=== PATIENT | male | born 1980 | race Caucasian/White ===

== ENCOUNTER 2019-10-26 17:22 | Emergency (ER) | payer OTHER, MEDICAID, SELFPAY ==
[2019-10-26 17:32] VITALS: BP 140/73; PULSE 89; RESP 16; TEMP 37; O2SAT 99; BMI 26.4
--- NOTE | 2019-10-26 18:18 | DI.CT.S_ITS ---
PROCEDURE: CT SOFT TISSUE NECK W CON INDICATIONS: abscess right neck, difficulty swallowing TECHNIQUE: After the administration of intravenous contrast, 3.0 mm axial sections acquired from the sella to the aortic arch. Additional oblique axial 3.0 mm sections acquired through the pharynx. 3 mm thick coronal and sagittal reformats were generated. For radiation dose reduction, the following was used: automated exposure control. COMPARISON: None. FINDINGS: Image quality: Excellent. Lymph nodes: No enlarged lymph nodes seen throughout the neck. Vessels: Visualized vasculature appears patent. Neck spaces: The oropharynx, nasopharynx, and pharynx demonstrate no mucosal lesions. The vocal cords, false vocal cords, pyriform sinuses, epiglottis, vallecula, and tongue base all appear normal. There is thickening of the right platysma. There is severe facet and within the right neck subcutaneous fat. No focal fluid collection to indicate abscess. Glands: The parotid and submandibular glands appear normal. Thyroid gland demonstrates bilateral nodular densities, largest of which is in the left lobe anteriorly measuring roughly 10 mm.. Miscellaneous: Visualized brain and orbits appear normal. Lung apices appear clear. Superficial soft tissues appear normal. Bones: No suspicious bony lesions. Visualized sinuses and mastoids appear unremarkable. IMPRESSION: 1. Right neck cellulitis without abscess. Dictated by: Charo Nunn M.D. on 10/26/2019 at 19:05 Approved by: Charo Nunn M.D. on 10/26/2019 at 19:07
[2019-10-26 18:24] LABS: Add Manual Diff / Slide Review NO; Basophils Absolute Auto 0 /uL (0-100); Basophils Percent Auto 0.4 % (0-2); Eosinophils Absolute Auto 100 /uL (0-450); Eosinophils Percent Auto 0.6 % (2-4); Hematocrit 34.7 % (41-53); Hemoglobin 12.4 g/dL (13.5-17.5); Lymphocytes Absolute Auto 900 /uL (1100-4500); Lymphocytes Percent Auto 10.9 % (25-40); Mean Corpuscular HGB Conc 35.7 % (30-36); Mean Corpuscular Hemoglobin 28.7 PG (26-34); Mean Corpuscular Volume 80.4 fL (80-100); Monocytes Absolute Auto 1000 /uL (0-900); Monocytes Percent Auto 11.2 % (3-14); Neutrophils Absolute Auto 6700 /uL (1500-7000); Neutrophils Percent Auto 76.9 % (50-75); Platelet Count 246 X10^3/uL (150-400); Red Blood Cell Count 4.32 X10^6/uL (4.5-5.9); Red Cell Distribution Width 19.2 % (11.6-14.8); White Blood Cell Count 8.7 X10^3/uL (4.5-11.0)
[2019-10-26 18:29] LABS: Lactate (Lactic Acid) 0.7 mmol/L (0.7-2.1)
[2019-10-26] MEDS: ONDANSETRON 4 MG/2 ML INJ IV (18:30)
[2019-10-26] MEDS: SODIUM CHLORIDE 0.9% 1,000 ML 1000 ML IV (18:30)
[2019-10-26 18:32] LABS: Alanine Aminotransferase 43 IU/L (<50); Albumin 4.3 g/dL (3.5-5.0); Albumin Globulin Ratio 1.2 (1.0-2.8); Alkaline Phosphatase 113 U/L (38-126); Aspartate Aminotransferase 46 IU/L (17-59); BUN Creatinine Ratio 13.5 (6-22); Bilirubin Total 2.2 mg/dL (0.2-1.3); Blood Urea Nitrogen 13 mg/dL (9-20); Calcium 9.3 mg/dL (8.4-10.2); Carbon Dioxide 25 mmol/L (22-32); Chloride 100 mmol/L (98-107); Estimated Glomerular Filt Rate > 60.0 mL/min (>60); Globulin 3.6 g/dL (1.7-4.1); Glucose 127 mg/dL (70-100); HEMOLYSIS < 15 (0-50); Potassium 3.9 mmol/L (3.4-5.1); Sodium 135 mmol/L (137-145); Total Protein 7.9 g/dL (6.3-8.2)
[2019-10-26] MEDS: MORPHINE 4 MG/ML INJ IV (18:37)
[2019-10-26 18:52] LABS: Procalcitonin < 0.05 ng/mL (<0.5)
--- NOTE | 2019-10-26 19:15 | ED.SKABFB ---
HPI - Skin/Abscess/Foreign Bdy <EDWARD Ling-BC - Last Filed: 10/26/19 20:29> General Chief complaint: Skin/Abscess/Foreign Body Stated complaint: abcess right side neck/jaw area Time Seen by Provider: 10/26/19 18:04 Source: patient and family Mode of arrival: Ambulatory Limitations: no limitations History of Present Illness HPI narrative: The patient is a 38-year-old male nonsmoker with history of type 1 diabetes as well as and dilated cardiomyopathy presents with a chief complaint of a abscess on the right side of his neck. Started 2 days ago when he ?picked at a pimple.He states he has some slight trouble swallowing, no fevers nausea vomiting or diarrhea. He saw his primary care provider at the [facility] clinic on [facility] who referred him to the emergency department. He states it drained ?clear fluid a few days ago. The patient states he has been checking his blood sugars regularly and that they have been were very well controlled Related Data Previous Rx's Medication Instructions Recorded cephalexin 500 mg PO QID #40 cap 10/26/19 hydrocodone-acetaminophen 1 tab PO Q4-6H PRN #7 tab 10/26/19 ondansetron 4 mg PO Q6H PRN #14 tab 10/26/19 sulfamethoxazole-trimethoprim 1 tab PO BID #14 tab 10/26/19 Allergies Allergy/AdvReac Type Severity Reaction Status Date / Time codeine Allergy Verified 10/26/19 18:29 Review of Systems <EDWARD Ling-BC - Last Filed: 10/26/19 20:29> Review of Systems Narrative: GENERAL: Denies chills, fatigue, malaise, fever, sweats. HEENT: See HPI RESPIRATORY: Denies dyspnea, cough, wheezing, hemoptysis, sputum. CARDIOVASCULAR: Denies chest pain, palpitations, orthopnea, edema, GASTROINTESTINAL: Denies nausea, vomiting, abdominal pain, diarrhea, constipation, melena. : Denies dysuria, frequency, incontinence, hematuria, urinary retention. MUSCULOSKELETAL: denies weakness, joint pain, or bony pain SKIN: See HPI NEUROLOGIC: Denies weakness, headache, numbness, change in speech, confusion, seizures, incoordination. PSYCHIATRIC: No concerning psychosocial issues. 12 point review of systems is negative except for those stated above Patient History <Savi VilaULIP-BC - Last Filed: 10/26/19 20:29> Social History Smoking Status: Never smoker Smoking Status: Never smoker alcohol intake frequency: 0-2 drinks per day Substance Use Type: does not use Exam <Savi Vila PIPE FITTER APPRENTICE-BC - Last Filed: 10/26/19 20:29> Narrative Exam Narrative: GENERAL: This is a well-nourished, well-developed patient, in no acute distress HEAD: Atraumatic. Normocephalic. No temporal or scalp tenderness. EYES: Pupils equal round and reactive. Extraocular motions intact. No scleral icterus. No injection or drainage. ENT: Nose without bleeding, purulent drainage or septal hematoma. Throat without erythema, tonsillar hypertrophy or exudate. Uvula midline. Airway patent. No trismus noted. See skin exam NECK: Trachea midline. No JVD or lymphadenopathy. Supple, nontender, no meningeal signs. CARDIOVASCULAR: Regular rate and rhythm RESPIRATORY: Clear to auscultation. Breath sounds equal bilaterally. No wheezes, rales, or rhonchi. No cough. No increased respiratory effort. No accessory muscle use. Speaking full sentences. GASTROINTESTINAL: Abdomen soft, non-tender, nondistended. No hepato-splenomegaly, or palpable masses. No guarding. EXTREMITIES: No clubbing, cyanosis, or edema. No joint tenderness, effusion, or edema noted. BACK: Nontender without deformity or crepitance. No flank tenderness. NEURO: AOx3. SKIN: 5 x 4 cm of erythema on lateral aspect of right neck submandibular area hired no palpable fluctuance. Tenderness to palpation noted. No drainage noted. Initial Vital Signs Initial Vital Signs: Vital Signs Temperature 98.6 F 10/26/19 17:32 Pulse Rate 89 10/26/19 17:32 Respiratory Rate 16 10/26/19 17:32 Blood Pressure 140/73 10/26/19 17:32 Pulse Oximetry 99 10/26/19 17:32 <Teri Rosen MD - Last Filed: 10/26/19 22:47> Initial Vital Signs Initial Vital Signs: Vital Signs Temperature 98.6 F 10/26/19 17:32 Pulse Rate 89 10/26/19 17:32 Respiratory Rate 16 10/26/19 17:32 Blood Pressure 140/73 10/26/19 17:32 Pulse Oximetry 99 10/26/19 17:32 Scores <Savi JAMISON Vila - Last Filed: 10/26/19 20:29> GCS Brenden coma scale eye opening: Spontaneous Rayne coma scale verbal response: Orientated Brenden coma scale motor response: Obey commands Brenden coma scale total score: 15 Course <Savi JAMISON Vila - Last Filed: 10/26/19 20:29> Orders Ordered: ED Orders 10/26/19 17:54 Complete Blood Count AUTO DIFF Stat Comprehensive Metabolic Panel Stat Lactate (Lactic Acid) Stat Procalcitonin Stat 10/26/19 18:18 CT soft tissue neck w con Stat 10/26/19 18:43 Blood Culture Stat Discontinued Medications Cephalexin HCl (Keflex) 500 mg PO NOW ONE Stop: 10/26/19 19:49 Last Admin: 10/26/19 19:54 Dose: 500 mg Documented by: ELGIN Sodium Chloride (Normal Saline 0.9%) 1,000 mls @ 1,000 mls/hr IV BOLUS ONE Stop: 10/26/19 19:16 Last Infusion: 10/26/19 19:54 Dose: 0 mls/hr Documented by: Admin: 10/26/19 18:30 Dose: 1,000 mls/hr Documented by: JOY Morphine Sulfate (Morphine) 4 mg IV NOW ONE Stop: 10/26/19 18:18 Last Admin: 10/26/19 18:37 Dose: 4 mg Documented by: JOY Ondansetron HCl (Zofran) 4 mg IV NOW ONE Stop: 10/26/19 18:18 Last Admin: 10/26/19 18:30 Dose: 4 mg Documented by: JOY Trimethoprim/Sulfamethoxazole (Bactrim Ds) 1 tab PO NOW ONE Stop: 10/26/19 19:49 Last Admin: 10/26/19 19:54 Dose: 1 tab Documented by: ELGIN Vital Signs Vital signs: Vital Signs - 8 hr 10/26/19 17:32 10/26/19 19:22 10/26/19 19:54 Temperature 98.6 F Pulse Rate 89 84 93 H Respiratory Rate 16 18 16 Blood Pressure 140/73 117/66 Blood Pressure [Left Arm] 118/71 Pulse Oximetry 99 98 97 <Teri Rosen MD - Last Filed: 10/26/19 22:47> Orders Ordered: ED Orders 10/26/19 17:54 Complete Blood Count AUTO DIFF Stat Comprehensive Metabolic Panel Stat Lactate (Lactic Acid) Stat Procalcitonin Stat 10/26/19 18:18 CT soft tissue neck w con Stat 10/26/19 18:43 Blood Culture Stat Discontinued Medications Cephalexin HCl (Keflex) 500 mg PO NOW ONE Stop: 10/26/19 19:49 Last Admin: 10/26/19 19:54 Dose: 500 mg Documented by: ELGIN Sodium Chloride (Normal Saline 0.9%) 1,000 mls @ 1,000 mls/hr IV BOLUS ONE Stop: 10/26/19 19:16 Last Infusion: 10/26/19 19:54 Dose: 0 mls/hr Documented by: Admin: 10/26/19 18:30 Dose: 1,000 mls/hr Documented by: JOY Morphine Sulfate (Morphine) 4 mg IV NOW ONE Stop: 10/26/19 18:18 Last Admin: 10/26/19 18:37 Dose: 4 mg Documented by: JOY Ondansetron HCl (Zofran) 4 mg IV NOW ONE Stop: 10/26/19 18:18 Last Admin: 10/26/19 18:30 Dose: 4 mg Documented by: JOY Trimethoprim/Sulfamethoxazole (Bactrim Ds) 1 tab PO NOW ONE Stop: 10/26/19 19:49 Last Admin: 10/26/19 19:54 Dose: 1 tab Documented by: ELGIN Vital Signs Vital signs: Vital Signs - 8 hr 10/26/19 17:32 10/26/19 19:22 10/26/19 19:54 Temperature 98.6 F Pulse Rate 89 84 93 H Respiratory Rate 16 18 16 Blood Pressure 140/73 117/66 Blood Pressure [Left Arm] 118/71 Pulse Oximetry 99 98 97 MDM - Skin/Abscess/Foreign Bdy <JAMISON Ling - Last Filed: 10/26/19 20:29> Lab Data Result diagrams: 10/26/19 17:54 10/26/19 17:54 Labs: Lab Results 10/26/19 10/26/19 10/26/19 Range/Units 17:54 17:54 17:54 WBC 8.7 (4.5-11.0) X10^3/uL RBC 4.32 L (4.5-5.9) X10^6/uL Hgb 12.4 L (13.5-17.5) g/dL Hct 34.7 L (41-53) % MCV 80.4 (80-100) fL MCH 28.7 (26-34) PG MCHC 35.7 (30-36) % RDW 19.2 H (11.6-14.8) % Plt Count 246 (150-400) X10^3/uL Neut % (Auto) 76.9 H (50-75) % Lymph % (Auto) 10.9 L (25-40) % [place] % (Auto) 11.2 (3-14) % Eos % (Auto) 0.6 L (2-4) % Baso % (Auto) 0.4 (0-2) % Neut # (Auto) 6700 (4558-9646) /uL Lymph # (Auto) 900 L (0840-5790) /uL [place] # (Auto) 1000 H (0-900) /uL Eos # (Auto) 100 (0-450) /uL Baso # (Auto) 0 (0-100) /uL Sodium 135 L (137-145) mmol/L Potassium 3.9 (3.4-5.1) mmol/L Chloride 100 (98-107) mmol/L Carbon Dioxide 25 (22-32) mmol/L BUN 13 (9-20) mg/dL Creatinine 0.96 (0.66-1.25) mg/dL Estimated GFR > 60.0 (>60) mL/min BUN/Creatinine Ratio 13.5 (6-22) Glucose 127 H (70-100) mg/dL Lactate (0.7-2.1) mmol/L Calcium 9.3 (8.4-10.2) mg/dL Total Bilirubin 2.2 H (0.2-1.3) mg/dL AST 46 (17-59) IU/L ALT 43 (<50) IU/L Alkaline Phosphatase 113 (38-126) U/L Total Protein 7.9 (6.3-8.2) g/dL Albumin 4.3 (3.5-5.0) g/dL Globulin 3.6 (1.7-4.1) g/dL Albumin/Globulin Ratio 1.2 (1.0-2.8) Procalcitonin < 0.05 (<0.5) ng/mL 10/26/19 Range/Units 17:54 WBC (4.5-11.0) X10^3/uL RBC (4.5-5.9) X10^6/uL Hgb (13.5-17.5) g/dL Hct (41-53) % MCV (80-100) fL MCH (26-34) PG MCHC (30-36) % RDW (11.6-14.8) % Plt Count (150-400) X10^3/uL Neut % (Auto) (50-75) % Lymph % (Auto) (25-40) % [place] % (Auto) (3-14) % Eos % (Auto) (2-4) % Baso % (Auto) (0-2) % Neut # (Auto) (0595-5424) /uL Lymph # (Auto) (7897-9239) /uL [place] # (Auto) (0-900) /uL Eos # (Auto) (0-450) /uL Baso # (Auto) (0-100) /uL Sodium (137-145) mmol/L Potassium (3.4-5.1) mmol/L Chloride (98-107) mmol/L Carbon Dioxide (22-32) mmol/L BUN (9-20) mg/dL Creatinine (0.66-1.25) mg/dL Estimated GFR (>60) mL/min BUN/Creatinine Ratio (6-22) Glucose (70-100) mg/dL Lactate 0.7 (0.7-2.1) mmol/L Calcium (8.4-10.2) mg/dL Total Bilirubin (0.2-1.3) mg/dL AST (17-59) IU/L ALT (<50) IU/L Alkaline Phosphatase (38-126) U/L Total Protein (6.3-8.2) g/dL Albumin (3.5-5.0) g/dL Globulin (1.7-4.1) g/dL Albumin/Globulin Ratio (1.0-2.8) Procalcitonin (<0.5) ng/mL Point of Care Testing Glucose POC 148 Imaging Data soft tissue neck ct: Radiologist's Impression: [address] [place] [id number] Scan Report Signed Patient: Fercho Odell [employer] [facility]#: [id number] : 1980Acct:[id number] Age/Sex: 38 / MDate of Service: 10/26/19 Loc: ED Accession Number: [id number] Procedure: CT soft tissue neck w con Ordering Provider: Savi Vila PIPE FITTER APPRENTICE- PROCEDURE: CT SOFT TISSUE NECK W CON INDICATIONS: abscess right neck, difficulty swallowing TECHNIQUE: After the administration of intravenous contrast, 3.0 mm axial sections acquired from the sella to the aortic arch. Additional oblique axial 3.0 mm sections acquired through the pharynx. 3 mm thick coronal and sagittal reformats were generated. For radiation dose reduction, the following was used: automated exposure control. COMPARISON: None. FINDINGS: Image quality: Excellent. Lymph nodes: No enlarged lymph nodes seen throughout the neck. Vessels: Visualized vasculature appears patent. Neck spaces: The oropharynx, nasopharynx, and pharynx demonstrate no mucosal lesions. The vocal cords, false vocal cords, pyriform sinuses, epiglottis, vallecula, and tongue base all appear normal. There is thickening of the right platysma. There is severe facet and within the right neck subcutaneous fat. No focal fluid collection to indicate abscess. Glands: The parotid and submandibular glands appear normal. Thyroid gland demonstrates bilateral nodular densities, largest of which is in the left lobe anteriorly measuring roughly 10 mm.. Miscellaneous: Visualized brain and orbits appear normal. Lung apices appear clear. Superficial soft tissues appear normal. Bones: No suspicious bony lesions. Visualized sinuses and mastoids appear unremarkable. IMPRESSION: 1. Right neck cellulitis without abscess. Dictated by: Charo Nunn M.D. on 10/26/2019 at 19:05 Approved by: Charo Nunn M.D. on 10/26/2019 at 19:07 [facility] Narrative Medical decision making narrative: The patient is a 38-year-old male who presents with a chief complaint of a possible abscess and swelling in the submandibular area of his right neck. Lab work is within normal limits, with no leukocytosis. He has no palpable abscess on exam. Given his comorbidities including cardiomyopathy in type 1 diabetes, I did obtain a CT soft tissue of his neck which reveals cellulitis with no abscess. We elected to treat him with Keflex and Bactrim at this point time. I discussed use of IV antibiotics, the patient received 1 g ceftriaxone at his outpatient clinic today. However the patient left all of his medications on [facility] including his blood thinners and would like to be discharged as quickly as possible. Thus he received 1st dose of antibiotics in the emergency department p.o. and I sent prescriptions to [facility] as per his request. I discussed at length the importance of following up with primary care provider in the next few days, coming back to the emergency department for any acute concerns and monitoring for spreading worsening etcetera. Patient has no questions or concerns upon discharge and states understanding of return precautions as well as follow-up care. <Teri Rosen MD - Last Filed: 10/26/19 22:47> Lab Data Labs: Lab Results 10/26/19 10/26/19 10/26/19 Range/Units 17:54 17:54 17:54 WBC 8.7 (4.5-11.0) X10^3/uL RBC 4.32 L (4.5-5.9) X10^6/uL Hgb 12.4 L (13.5-17.5) g/dL Hct 34.7 L (41-53) % MCV 80.4 (80-100) fL MCH 28.7 (26-34) PG MCHC 35.7 (30-36) % RDW 19.2 H (11.6-14.8) % Plt Count 246 (150-400) X10^3/uL Neut % (Auto) 76.9 H (50-75) % Lymph % (Auto) 10.9 L (25-40) % [place] % (Auto) 11.2 (3-14) % Eos % (Auto) 0.6 L (2-4) % Baso % (Auto) 0.4 (0-2) % Neut # (Auto) 6700 (2773-9321) /uL Lymph # (Auto) 900 L (7513-8518) /uL [place] # (Auto) 1000 H (0-900) /uL Eos # (Auto) 100 (0-450) /uL Baso # (Auto) 0 (0-100) /uL Sodium 135 L (137-145) mmol/L Potassium 3.9 (3.4-5.1) mmol/L Chloride 100 (98-107) mmol/L Carbon Dioxide 25 (22-32) mmol/L BUN 13 (9-20) mg/dL Creatinine 0.96 (0.66-1.25) mg/dL Estimated GFR > 60.0 (>60) mL/min BUN/Creatinine Ratio 13.5 (6-22) Glucose 127 H (70-100) mg/dL Lactate (0.7-2.1) mmol/L Calcium 9.3 (8.4-10.2) mg/dL Total Bilirubin 2.2 H (0.2-1.3) mg/dL AST 46 (17-59) IU/L ALT 43 (<50) IU/L Alkaline Phosphatase 113 (38-126) U/L Total Protein 7.9 (6.3-8.2) g/dL Albumin 4.3 (3.5-5.0) g/dL Globulin 3.6 (1.7-4.1) g/dL Albumin/Globulin Ratio 1.2 (1.0-2.8) Procalcitonin < 0.05 (<0.5) ng/mL 10/26/19 Range/Units 17:54 WBC (4.5-11.0) X10^3/uL RBC (4.5-5.9) X10^6/uL Hgb (13.5-17.5) g/dL Hct (41-53) % MCV (80-100) fL MCH (26-34) PG MCHC (30-36) % RDW (11.6-14.8) % Plt Count (150-400) X10^3/uL Neut % (Auto) (50-75) % Lymph % (Auto) (25-40) % [place] % (Auto) (3-14) % Eos % (Auto) (2-4) % Baso % (Auto) (0-2) % Neut # (Auto) (6488-7643) /uL Lymph # (Auto) (6169-4561) /uL [place] # (Auto) (0-900) /uL Eos # (Auto) (0-450) /uL Baso # (Auto) (0-100) /uL Sodium (137-145) mmol/L Potassium (3.4-5.1) mmol/L Chloride (98-107) mmol/L Carbon Dioxide (22-32) mmol/L BUN (9-20) mg/dL Creatinine (0.66-1.25) mg/dL Estimated GFR (>60) mL/min BUN/Creatinine Ratio (6-22) Glucose (70-100) mg/dL Lactate 0.7 (0.7-2.1) mmol/L Calcium (8.4-10.2) mg/dL Total Bilirubin (0.2-1.3) mg/dL AST (17-59) IU/L ALT (<50) IU/L Alkaline Phosphatase (38-126) U/L Total Protein (6.3-8.2) g/dL Albumin (3.5-5.0) g/dL Globulin (1.7-4.1) g/dL Albumin/Globulin Ratio (1.0-2.8) Procalcitonin (<0.5) ng/mL Point of Care Testing Glucose POC 148 Discharge Plan Departure Patient Disposition: Home Clinical Impression: Cellulitis Qualifiers: Site of cellulitis: neck Qualified Code(s): L03.221 - Cellulitis of neck Discharge Date/Time: 10/26/19 19:55 Instructions: DI for Cellulitis -- Adult Activity Restrictions/Additional Instructions: Thank you for trusting us with your care today As discussed, your lab work is reassuring and your imaging shows cellulitis and no sign of abscess. Thus there is no pus pocket in your neck at this point time. I sent in for prescriptions to [facility]. One is for pain, the other for nausea and 2 different antibiotics. As discussed, it is important that you watch your blood sugars and follow up with primary care provider Please come back to the emergency department for any acute concerns You have been prescribed narcotic medications. While on these medications you cannot drive or operate heavy machinery. Additionally you cannot sign legal documents or perform any duties such as this. Many people get constipated on narcotic medications so it would be advisable to discuss stool softeners with the pharmacist when you picker feeder your prescription. Prescriptions: New hydrocodone-acetaminophen 5-325 mg tablet 1 tab PO Q4-6H PRN (Reason: pain) Qty: 7 RF: 0 sulfamethoxazole-trimethoprim 800-160 mg tablet 1 tab PO BID Qty: 14 RF: 0 cephalexin 500 mg capsule 500 mg PO QID Qty: 40 RF: 0 ondansetron 4 mg tablet,disintegrating 4 mg PO Q6H PRN (Reason: nausea and vomiting) Qty: 14 RF: 0 Referrals: Antonio Dahl [Non-Staff] - Dayan Daugherty MD [Primary Care Provider] - <Teri Rosen MD - Last Filed: 10/26/19 22:47> Cosign ED Attending Cosignature Attestation: I was immediately available in the department for consultation throughout this patient's visit. I agree with documentation as above. Teri Rosen MD
--- NOTE | 2019-10-26 19:19 | PC.NURSE ---
Received report from MACIE Singh. pt resting in bed. fluids infusing. denies needs at this time. advised will update on plan of care. NAD
[2019-10-26 19:22] VITALS: BP 118/71; PULSE 84; RESP 18; O2SAT 98
[2019-10-26 19:54] VITALS: BP 117/66; PULSE 93; RESP 16; O2SAT 97
[2019-10-26] MEDS: cephALEXin 250 MG CAPSULE 500 MG PO (19:54)
[2019-10-26] MEDS: TRIMETH/SULFA 160/800 (DS) TABLET 1 TAB PO (19:54)
== END 2019-10-26 19:55 | disposition home or self-care (01) ==
PROVIDERS: Emergency Provider Nurse Practitioner Family; PCP Family Medicine; Referring Provider Family Medicine
DX: L03.221 Cellulitis of neck (principal)
CPT/HCPCS: 36415; 70491; 80053; 82962; 83605; 84145; 85025; 87040; 96361; 96374; 96375; 99284; J2270; J2405; Q9967

== ENCOUNTER → 2021-04-27 10:10 | Outpatient (CLI) | payer OTHER, MEDICAID, SELFPAY ==
[2021-04-27 22:47] LABS: COVID19 - ORCAS (NP or Nasal) POSITIVE (Negative)
== END ==
PROVIDERS: PCP Family Medicine; Visit Provider Family Medicine
DX: U07.1 COVID-19 (principal)
CPT/HCPCS: U0003

== ENCOUNTER → 2023-07-04 10:24 | Outpatient (CLI) | payer OTHER, MEDICAID, SELFPAY ==
[2023-07-04 21:29] LABS: Alanine Aminotransferase 17 IU/L (<50); Albumin 4.2 g/dL (3.5-5.0); Albumin Globulin Ratio 1.3 (1.0-2.8); Alkaline Phosphatase 80 U/L (38-126); Aspartate Aminotransferase 24 IU/L (17-59); BUN Creatinine Ratio 15.1 (6-22); Bilirubin Total 1.3 mg/dL (0.2-1.3); Blood Urea Nitrogen 13 mg/dL (9-20); Calcium 9.4 mg/dL (8.4-10.2); Carbon Dioxide 27 mmol/L (22-32); Chloride 102 mmol/L (98-107); Cholesterol 234 mg/dL (140-199); Estimated Glomerular Filt Rate > 60 mL/min (>60); Globulin 3.2 g/dL (1.7-4.1); Glucose 210 mg/dL (70-100); HDL Cholesterol 32 mg/dL (40-60); HEMOLYSIS < 15 (0-50); LDL Cholesterol Calculated 157 mg/dL (<100); Potassium 4.3 mmol/L (3.4-5.1); Sodium 139 mmol/L (137-145); Total Protein 7.4 g/dL (6.3-8.2); Triglycerides 227 mg/dL (35-150)
== END ==
PROVIDERS: PCP Physician Assistant; Visit Provider Nurse Practitioner
DX: E78.5 Hyperlipidemia, unspecified (principal)
CPT/HCPCS: 80053; 80061; 83036

== ENCOUNTER → 2023-07-21 10:19 | Outpatient (CLI) | payer OTHER, MEDICAID, SELFPAY ==
[2023-07-21 19:58] LABS: Creatinine Urine Random 129.9 mg/dL
[2023-07-21 20:35] LABS: Add Manual Diff / Slide Review NO; Basophils Absolute Auto 0 /uL (0-100); Basophils Percent Auto 0.4 % (0-2); Eosinophils Absolute Auto 200 /uL (0-450); Eosinophils Percent Auto 5.4 % (2-4); Hematocrit 37.3 % (41-53); Hemoglobin 13.3 g/dL (13.5-17.5); Lymphocytes Absolute Auto 1100 /uL (1100-4500); Lymphocytes Percent Auto 31.3 % (25-40); Mean Corpuscular HGB Conc 35.8 % (30-36); Mean Corpuscular Hemoglobin 30.9 PG (26-34); Mean Corpuscular Volume 86.5 fL (80-100); Monocytes Absolute Auto 300 /uL (0-900); Monocytes Percent Auto 8.4 % (3-14); Neutrophils Absolute Auto 1800 /uL (1500-7000); Neutrophils Percent Auto 54.5 % (50-75); Platelet Count 279 X10^3/uL (150-400); Red Blood Cell Count 4.32 X10^6/uL (4.5-5.9); Red Cell Distribution Width 14.3 % (11.6-14.8); White Blood Cell Count 3.4 X10^3/uL (4.5-11.0)
[2023-07-21 20:43] LABS: Microalbumin Urine Random < 0.6 mg/dL (0-1.6)
== END ==
PROVIDERS: PCP Family Medicine; Visit Provider Physician Assistant
DX: E10.69 Type 1 diabetes mellitus with other specified complication (principal)
CPT/HCPCS: 82043; 82570; 85025

== ENCOUNTER → 2023-08-11 13:21 | Outpatient (CLI) | payer OTHER, MEDICAID, SELFPAY ==
[2023-08-11 20:35] LABS: Reticulocyte Count, Percent 2.6 % (0.9-2.6)
[2023-08-11 20:37] LABS: HEMOLYSIS < 15 (0-50); Iron 164 ug/dL (49-181)
[2023-08-11 20:47] LABS: Percent Iron Saturation 40 % (20-50); Total Iron Binding Capacity 413 ug/dL (261-462); Transferrin 375 mg/dL (206-381)
[2023-08-11 21:11] LABS: Thyroid Stimulating Hormone 11.8 uIU/mL (0.47-4.68)
[2023-08-11 21:17] LABS: Ferritin 15 ng/mL (18-464)
[2023-08-11 21:49] LABS: Folate 8.4 ng/mL (2.76-20.0); Vitamin B12 Reflex MMA if <400 371 pg/mL (239-931)
[2023-08-15 14:49] LABS: Methylmalonic Acid,Serum 285 nmol/L (0-378)
== END ==
PROVIDERS: PCP Family Medicine; Visit Provider Family Medicine
DX: D64.9 Anemia, unspecified (principal); E03.9 Hypothyroidism, unspecified
CPT/HCPCS: 82607; 82728; 82746; 83540; 83550; 83921; 84443; 85045

== ENCOUNTER → 2023-11-03 14:12 | Outpatient (CLI) | payer OTHER, MEDICAID, SELFPAY ==
[2023-11-03 20:16] LABS: Vitamin D 25 Hydroxy (D3) 16.8 ng/mL (30.0-100.0)
[2023-11-03 20:30] LABS: Thyroid Stimulating Hormone 9.23 uIU/mL (0.47-4.68)
[2023-11-03 20:38] LABS: Ferritin 13 ng/mL (18-464)
== END ==
PROVIDERS: PCP Family Medicine; Visit Provider Family Medicine
DX: E03.9 Hypothyroidism, unspecified (principal); D50.9 Iron deficiency anemia, unspecified; Z71.3 Dietary counseling and surveillance
CPT/HCPCS: 82306; 82728; 84443

== ENCOUNTER → 2024-03-20 13:47 | Outpatient (CLI) | payer OTHER, MEDICAID, SELFPAY ==
[2024-03-20 20:24] LABS: Add Manual Diff / Slide Review NO; Basophils Absolute Auto 0 /uL (0-100); Basophils Percent Auto 0.2 % (0-2); Eosinophils Absolute Auto 200 /uL (0-450); Eosinophils Percent Auto 4.4 % (2-4); Hematocrit 37.9 % (41-53); Hemoglobin 13.6 g/dL (13.5-17.5); Lymphocytes Absolute Auto 1200 /uL (1100-4500); Mean Corpuscular HGB Conc 35.9 % (30-36); Mean Corpuscular Hemoglobin 31.4 PG (26-34); Mean Corpuscular Volume 87.5 fL (80-100); Monocytes Absolute Auto 300 /uL (0-900); Monocytes Percent Auto 8.6 % (3-14); Neutrophils Absolute Auto 2200 /uL (1500-7000); Neutrophils Percent Auto 55.8 % (50-75); Platelet Count 299 X10^3/uL (150-400); Red Blood Cell Count 4.33 X10^6/uL (4.5-5.9); Red Cell Distribution Width 13.8 % (11.6-14.8); White Blood Cell Count 3.9 X10^3/uL (4.5-11.0)
[2024-03-20 20:27] LABS: Vitamin D 25 Hydroxy (D3) 36.5 ng/mL (30.0-100.0)
[2024-03-20 20:38] LABS: Ferritin 33 ng/mL (18-464)
[2024-03-20 20:40] LABS: Thyroid Stimulating Hormone 5.09 uIU/mL (0.47-4.68)
== END ==
PROVIDERS: PCP Family Medicine; Visit Provider Family Medicine
DX: D50.9 Iron deficiency anemia, unspecified (principal); E03.9 Hypothyroidism, unspecified; I10 Essential (primary) hypertension; E55.9 Vitamin D deficiency, unspecified; E10.40 Type 1 diabetes mellitus with diabetic neuropathy, unspecified
CPT/HCPCS: 82306; 82728; 84443; 85025

== ENCOUNTER → 2024-03-27 15:14 | Outpatient (CLI) | payer OTHER, MEDICAID, SELFPAY ==
[2024-03-27 19:12] LABS: Creatinine Urine Random 275.7 mg/dL
[2024-03-27 19:31] LABS: Microalbumi Creatinin Ratio Ur 5.8 ug/mg CR (<30); Microalbumin Urine Random 1.6 mg/dL (0-1.6)
== END ==
PROVIDERS: PCP Family Medicine; Visit Provider Family Medicine
DX: E10.65 Type 1 diabetes mellitus with hyperglycemia (principal)
CPT/HCPCS: 82043; 82570

== ENCOUNTER → 2024-05-14 09:24 | Outpatient (CLI) | payer OTHER, SELFPAY ==
[2024-05-14 19:20] LABS: Cholesterol 173 mg/dL (140-199); HDL Cholesterol 36 mg/dL (40-60); LDL Cholesterol Calculated 88 mg/dL (<100); Triglycerides 246 mg/dL (35-150)
== END ==
PROVIDERS: PCP Family Medicine; Visit Provider Family Medicine
DX: E10.69 Type 1 diabetes mellitus with other specified complication (principal); E10.40 Type 1 diabetes mellitus with diabetic neuropathy, unspecified
CPT/HCPCS: 80061

== ENCOUNTER → 2024-07-03 10:48 | Outpatient (CLI) | payer OTHER, SELFPAY ==
[2024-07-03 19:11] LABS: Hemoglobin A1C% w Est Avg Glu 6.1 % (4.0-6.0)
[2024-07-03 19:21] LABS: Albumin 4.6 g/dL (3.5-5.0); BUN Creatinine Ratio 9.3 (6-22); Blood Urea Nitrogen 11 mg/dL (9-20); Calcium 9.6 mg/dL (8.4-10.2); Carbon Dioxide 28 mmol/L (22-32); Chloride 101 mmol/L (98-107); Estimated Glomerular Filt Rate > 60 mL/min (>60); Glucose 98 mg/dL (70-100); HEMOLYSIS < 15 (0-50); Phosphorous 4.4 mg/dL (2.5-4.5); Sodium 140 mmol/L (137-145)
[2024-07-03 19:30] LABS: Vitamin D 25 Hydroxy (D3) 31.3 ng/mL (30.0-100.0)
[2024-07-03 19:43] LABS: Thyroid Stimulating Hormone 32.4 uIU/mL (0.47-4.68)
[2024-07-03 19:55] LABS: Ferritin 37 ng/mL (18-464)
== END ==
PROVIDERS: PCP Family Medicine; Visit Provider Family Medicine
DX: E10.65 Type 1 diabetes mellitus with hyperglycemia (principal); E10.69 Type 1 diabetes mellitus with other specified complication; E03.9 Hypothyroidism, unspecified; E55.9 Vitamin D deficiency, unspecified; D50.9 Iron deficiency anemia, unspecified; R79.0 Abnormal level of blood mineral
CPT/HCPCS: 80069; 82306; 82728; 83036; 84443

== ENCOUNTER → 2024-11-20 13:02 | Outpatient (CLI) | payer OTHER, SELFPAY ==
[2024-11-20 19:56] LABS: Thyroid Stimulating Hormone 3.20 uIU/mL (0.47-4.68)
[2024-11-20 20:00] LABS: Ferritin 59 ng/mL (18-464)
== END ==
PROVIDERS: PCP Family Medicine; Visit Provider Family Medicine
DX: E10.40 Type 1 diabetes mellitus with diabetic neuropathy, unspecified (principal); D64.9 Anemia, unspecified
CPT/HCPCS: 82728; 84443

== ENCOUNTER → 2025-03-19 14:15 | Outpatient (CLI) | payer OTHER, SELFPAY | PROVIDERS: PCP Family Medicine; Visit Provider Family Medicine | DX: E10.69 Type 1 diabetes mellitus with other specified complication (principal) | CPT/HCPCS: 82043; 82570 ==

== ENCOUNTER → 2025-03-21 11:31 | Outpatient (CLI) | payer OTHER, SELFPAY ==
[2025-03-21 19:15] LABS: Albumin 4.5 g/dL (3.5-5.0); Blood Urea Nitrogen 17 mg/dL (9-20); Calcium 9.7 mg/dL (8.4-10.2); Carbon Dioxide 24 mmol/L (22-32); Chloride 102 mmol/L (98-107); Cholesterol 217 mg/dL (140-199); Estimated Glomerular Filt Rate > 60 mL/min (>60); Glucose 121 mg/dL (70-99); HDL Cholesterol 33 mg/dL (40-60); HEMOLYSIS < 15 (0-50); Phosphorous 4.4 mg/dL (2.5-4.5); Potassium 4.7 mmol/L (3.4-5.1); Sodium 138 mmol/L (137-145); Triglycerides 309 mg/dL (35-150)
[2025-03-21 19:19] LABS: Hemoglobin A1C% w Est Avg Glu 6.4 % (4.0-6.0)
[2025-03-21 19:35] LABS: Vitamin D 25 Hydroxy (D3) 48.4 ng/mL (30.0-100.0)
[2025-03-21 19:48] LABS: Ferritin 35 ng/mL (18-464); Thyroid Stimulating Hormone 8.91 uIU/mL (0.47-4.68)
== END ==
PROVIDERS: PCP Family Medicine; Visit Provider Family Medicine
DX: E10.65 Type 1 diabetes mellitus with hyperglycemia (principal); E55.9 Vitamin D deficiency, unspecified; D50.8 Other iron deficiency anemias; E03.9 Hypothyroidism, unspecified
CPT/HCPCS: 80061; 80069; 82306; 82728; 83036; 84443